=== PATIENT | female | born 1990 ===

== ENCOUNTER → 2020-08-15 15:04 | Outpatient (BNVA) | payer MEDICARE, MEDICAID, SELFPAY | PROVIDERS: Visit Provider Advanced Practice Midwife | DX: Z76.89 Persons encountering health services in other specified circumstances (principal) ==

== ENCOUNTER → 2020-08-16 15:05 | Outpatient (BNVA) | payer MEDICARE, MEDICAID, SELFPAY | PROVIDERS: Visit Provider Advanced Practice Midwife | DX: C95.90 Leukemia, unspecified not having achieved remission (principal); N92.6 Irregular menstruation, unspecified | CPT/HCPCS: 81025; 99202 ==